=== PATIENT | male | born 1965 | race Caucasian/White ===

== ENCOUNTER 2018-11-18 05:27 | Emergency (ER) | payer BC ==
[~2018-11-18] VITALS: Ht 172.7 cm; Wt 83.9 kg
[2018-11-18] MEDS ORDERED: VANCOMYCIN PER PHARMACY MC PRN (06:15)
--- NOTE | 2018-11-18 06:16 | PHYS DOC ---
Adult General Chief Complaint Chief Complaint: INSECT BITE HPI HPI Patient is a 53 year old male presented with left calf pain and swelling since two days ago. Patient felt like something bit him there. Patient denied any chest pain, no shortness of air, no fever. Patient denied any injury. Patient denied any history of diabetic or HTN. He is currently not on any medication. Review of Systems Review of Systems Constitutional: Denies fever or chills [] Eyes: Denies change in visual acuity, redness, or eye pain [] HENT: Denies nasal congestion or sore throat [] Respiratory: Denies cough or shortness of breath [] Cardiovascular: No additional information not addressed in HPI [] GI: Denies abdominal pain, nausea, vomiting, bloody stools or diarrhea [] : Denies dysuria or hematuria [] Musculoskeletal: Denies back pain or joint pain. Positive for left calf pain and swelling. Integument: Positive for skin lesion on left calf area. Neurologic: Denies headache, focal weakness or sensory changes [] Endocrine: Denies polyuria or polydipsia [] All other systems were reviewed and found to be within normal limits, except as documented in this note. Current Medications Current Medications Current Medications Medications (Trade) Dose Ordered Sig/Mani Start Time Stop Time Status Last Admin Dose Admin Cefazolin Sodium 50 ml @ 100 mls/hr 1X ONCE 11/18/18 07:00 11/18/18 07:29 DC 11/18/18 06:43 100 MLS/HR Diphenhydramine HCl (Benadryl) 25 mg 1X ONCE 11/18/18 07:00 11/18/18 07:01 DC 11/18/18 06:39 25 MG Ketorolac Tromethamine (Toradol 30mg Vial) 30 mg 1X ONCE 11/18/18 07:00 11/18/18 07:01 DC 11/18/18 06:40 30 MG Methylprednisolone Sodium Succinate (SOLU-Medrol 125MG VIAL) 125 mg 1X ONCE 11/18/18 07:00 11/18/18 07:01 DC 11/18/18 06:36 125 MG Sodium Chloride 1,000 ml @ 1,000 mls/hr 1X ONCE 11/18/18 07:00 11/18/18 07:59 DC 11/18/18 06:41 1,000 MLS/HR Vancomycin HCl (Vanco Per Pharmacy) 1 each PRN DAILY PRN 11/18/18 06:15 Vancomycin HCl 2 gm/Sodium Chloride 500 ml @ 250 mls/hr 1X ONCE 11/18/18 07:00 11/18/18 08:59 DC 11/18/18 07:12 250 MLS/HR Allergies Allergies Allergies Coded Allergies Type Severity Reaction Last Updated Verified No Known Drug Allergies 11/18/18 No Physical Exam Physical Exam Constitutional: Well developed, well nourished, no acute distress, non-toxic appearance. [] HENT: Normocephalic, atraumatic, bilateral external ears normal, oropharynx moist, no oral exudates, nose normal. [] Eyes: PERRLA, EOMI, conjunctiva normal, no discharge. [] Neck: Normal range of motion, no tenderness, supple, no stridor. [] Cardiovascular: Sinus tachycardia, regular rhythm, no murmur [] Lungs & Thorax: Bilateral breath sounds clear to auscultation [] Abdomen: Bowel sounds normal, soft, no tenderness, no masses, no pulsatile masses. [] Skin: Warm, dry. There is a 21 cm by 14 cm erythema area on the medial part of left calf. Back: No tenderness, no CVA tenderness. [] Extremities: No tenderness, no cyanosis, no clubbing, ROM intact, left calf tender with a 21 cm by 14 cm erythema area with appeared to be an insect bite anil centrally. Neurologic: Alert and oriented X 3, normal motor function, normal sensory function, no focal deficits noted. [] Psychologic: Affect normal, judgement normal, mood normal. [] Current Patient Data Vital Signs Vital Signs Date Time Temp Pulse Resp B/P (MAP) Pulse Ox O2 Delivery O2 Flow Rate FiO2 11/18/18 08:51 86 22 146/92 (110) 94 Room Air 11/18/18 06:01 98.7 98.7 Lab Values Laboratory Tests Test 11/18/18 06:19 White Blood Count 11.0 x10^3/uL (4.0-11.0) Red Blood Count 4.66 x10^6/uL (4.30-5.70) Hemoglobin 14.8 g/dL (13.0-17.5) Hematocrit 44.2 % (39.0-53.0) Mean Corpuscular Volume 95 fL (79-100) Mean Corpuscular Hemoglobin 32 pg (25-35) Mean Corpuscular Hemoglobin Concent 34 g/dL (31-37) Red Cell Distribution Width 13.5 % (11.5-14.5) Platelet Count 231 x10^3/uL (140-400) Neutrophils (%) (Auto) 80 % (31-73) H Lymphocytes (%) (Auto) 11 % (24-48) L Monocytes (%) (Auto) 8 % (0-9) Eosinophils (%) (Auto) 0 % (0-3) Basophils (%) (Auto) 0 % (0-3) Neutrophils # (Auto) 8.8 x10^3uL (1.8-7.7) H Lymphocytes # (Auto) 1.2 x10^3/uL (1.0-4.8) Monocytes # (Auto) 0.9 x10^3/uL (0.0-1.1) Eosinophils # (Auto) 0.0 x10^3/uL (0.0-0.7) Basophils # (Auto) 0.0 x10^3/uL (0.0-0.2) Sodium Level 137 mmol/L (136-145) Potassium Level 4.4 mmol/L (3.5-5.1) Chloride Level 99 mmol/L (98-107) Carbon Dioxide Level 25 mmol/L (21-32) Anion Gap 13 (6-14) Blood Urea Nitrogen 17 mg/dL (8-26) Creatinine 1.0 mg/dL (0.7-1.3) Estimated GFR (Cockcroft-Gault) 78.2 BUN/Creatinine Ratio 17 (6-20) Glucose Level 140 mg/dL (70-99) H Calcium Level 8.9 mg/dL (8.5-10.1) Total Bilirubin 0.6 mg/dL (0.2-1.0) Aspartate Amino Transferase (AST) 10 U/L (15-37) L Alanine Aminotransferase (ALT) 27 U/L (16-63) Alkaline Phosphatase 48 U/L (46-116) Total Protein 7.2 g/dL (6.4-8.2) Albumin 3.6 g/dL (3.4-5.0) Albumin/Globulin Ratio 1.0 (1.0-1.7) Laboratory Tests 11/18/18 06:19 Laboratory Tests 11/18/18 06:19 EKG EKG [] Radiology/Procedures Radiology/Procedures [][facility] [address] [place], [place] [id number] IMAGING REPORT Signed PATIENT: HEATHER MATAMOROS III ACCOUNT: [id number] : 1965 LOCATION: ER AGE: 53 SEX: M EXAM STATUS: REG ER ORD. PHYSICIAN: SHONA TOVAR DO REASON: left leg swelling and pain PROCEDURE: VENOUS LOWER EXTREMITY LEFT Left lower extremity venous ultrasound, 11/18/2018 : History: Left leg swelling and pain Duplex evaluation including grayscale, color flow and spectral Doppler analysis was performed. The femoral and popliteal veins show no filling defects to suggest DVT the posterior tibial and peroneal veins in the left calf are patent. There is moderate streaky edema in the medial calf. There is nonocclusive thrombus in the greater saphenous vein in the left calf. The greater saphenous vein in the thigh is widely patent. Incidental note is made of a mildly prominent lymph node at the left groin measuring 2.9 x 0.9 x 2.6 cm. IMPRESSION: 1. No sonographic evidence of deep vein thrombosis in left lower extremity. 2. Nonocclusive thrombus is identified in the greater saphenous vein in the left calf. 3. Moderate subcutaneous edema in the left calf. IMPRESSION: There is no sonographic evidence of deep vein thrombosis in the left lower extremity Electronically signed by: Anastacio Posadas MD (11/18/2018 9:18 AM) [facility] DICTATED and SIGNED BY: ANASTACIO POSADAS MD DATE: 11/18/18 0918 Course & Med Decision Making Course & Med Decision Making Pertinent Labs and Imaging studies reviewed. (See chart for details) [] Dragon Disclaimer Dragon Disclaimer This electronic medical record was generated, in whole or in part, using a voice recognition dictation system. Departure Departure Impression: Primary Impression: Cellulitis of left leg Additional Impression: Superficial thrombophlebitis Disposition: 01 HOME, SELF-CARE Condition: STABLE Referrals: NO PCP (PCP) FOLLOW UP WITH YOUR DOCTOR IN TWO DAYS FOR REEVALUATION. Patient Instructions: Cellulitis Scripts Tramadol Hcl (TRAMADOL HCL) 50 Mg Tablet 50 MG PO Q6HRS PRN for PAIN, #15 TAB Prov: SHONA TOVAR DO 11/18/18 Cephalexin (CEPHALEXIN) 500 Mg Tablet 1 TAB PO QID, #40 TAB Prov: SHONA TOVAR DO 11/18/18 Sulfamethoxazole/Trimethoprim (BACTRIM DS TABLET) 1 Each Tablet 1 TAB PO BID, #20 TAB Prov: SHONA TOVAR DO 11/18/18 Problem Qualifiers SHONA TOVAR DO Nov 18, 2018 06:16
[2018-11-18 06:29] LABS: BASO % 0 % (0-3); EOS % 0 % (0-3); HEMATOCRIT 44.2 % (39.0-53.0); HEMOGLOBIN 14.8 g/dL (13.0-17.5); LYMPH # 1.2 x10^3/uL (1.0-4.8); LYMPH % 11 % (24-48); MEAN CORPUSCULAR HEMOGLOBIN 32 pg (25-35); MEAN CORPUSCULAR HGB CONC 34 g/dL (31-37); MEAN CORPUSCULAR VOLUME 95 fL (79-100); MONO # 0.9 x10^3/uL (0.0-1.1); MONO % 8 % (0-9); NEUT # 8.8 x10^3uL (1.8-7.7); NEUT % 80 % (31-73); PLATELET COUNT 231 x10^3/uL (140-400); RED BLOOD COUNT 4.66 x10^6/uL (4.30-5.70); RED CELL DISTRIBUTION WIDTH 13.5 % (11.5-14.5)
[2018-11-18 06:38] LABS: CALCIUM 8.9 mg/dL (8.5-10.1); GFR 78.2; POTASSIUM 4.4 mmol/L (3.5-5.1)
[2018-11-18 06:44] LABS: ALBUMIN 3.6 g/dL (3.4-5.0); TOTAL BILIRUBIN 0.6 mg/dL (0.2-1.0); TOTAL PROTEIN 7.2 g/dL (6.4-8.2)
[2018-11-18] MEDS ORDERED: diphenhydrAMINE 50 MG/ML VIAL IVP ONE (07:00)
[2018-11-18] MEDS ORDERED: methylPREDNISolone SOD SUCC PF 125 MG/2 ML VIAL. IV ONE (07:00)
[2018-11-18] MEDS ORDERED: KETOROLAC 30 MG/ML VIAL. IV ONE (07:00)
[2018-11-18] MEDS ORDERED: VANCOMYCIN 2 GM in IV NORMAL SALINE 500ML BAG 500 ML IV ONE (07:00)
[2018-11-18] MEDS ORDERED: IV NORMAL SALINE 1000ML BAG 1,000 ML IV ONE (07:00)
[2018-11-18 09:04] VITALS: BP 154/91
--- NOTE | 2018-11-18 09:21 | RAD ---
Left lower extremity venous ultrasound, 11/18/2018 : History: Left leg swelling and pain Duplex evaluation including grayscale, color flow and spectral Doppler analysis was performed. The femoral and popliteal veins show no filling defects to suggest DVT the posterior tibial and peroneal veins in the left calf are patent. There is moderate streaky edema in the medial calf. There is nonocclusive thrombus in the greater saphenous vein in the left calf. The greater saphenous vein in the thigh is widely patent. Incidental note is made of a mildly prominent lymph node at the left groin measuring 2.9 x 0.9 x 2.6 cm. IMPRESSION: 1. No sonographic evidence of deep vein thrombosis in left lower extremity. 2. Nonocclusive thrombus is identified in the greater saphenous vein in the left calf. 3. Moderate subcutaneous edema in the left calf. IMPRESSION: There is no sonographic evidence of deep vein thrombosis in the left lower extremity Electronically signed by: Anastacio Posadas MD (11/18/2018 9:18 AM) [facility]
[2018-11-18] MEDS ORDERED: CEPH500T PO (09:38)
[2018-11-18] MEDS ORDERED: SULF1TAB24 PO (09:38)
[2018-11-18] MEDS ORDERED: TRAM50TA PO (09:38)
== END 2018-11-18 09:49 | disposition home or self-care (01) ==
LOC: ER 05:27
DX: L03.116 Cellulitis of left lower limb (principal); I80.02 Phlebitis and thrombophlebitis of superficial vessels of left lower extremity
CPT/HCPCS: 36415; 80053; 85025; 93971; 96365; 96366; 96367; 96375; 99284; J0690; J1200; J1885; J2930; J3370; J7030; J7040